=== PATIENT | female | born 1960 | race Caucasian/White ===

== ENCOUNTER 2017-04-11 12:30 | Observation (INO) | payer OTHER ==
[~2017-04-11] VITALS: Ht 162.6 cm; Wt 47.2 kg
--- NOTE | ~2017-04-11 | HP ---
Unit #: [id number] #: [id number] Patient: KEMAL MURRAY [id number] [facility] [place] [facility]. [place], [place] [address] [id number] MR#: [id number] NAME: KEMAL MURRAY ROOM: Age: 56 Sex: F Admission Date: 04/11/2017 : 1960 Attending Physician: Leona Shukla M.D. Primary Care Physician: Carmel Aldrich M.D. HISTORY AND PHYSICAL CHIEF COMPLAINT General weakness. HISTORY OF PRESENT ILLNESS The patient is a 56-year-old female with past medical history of endstage breast cancer with skeletal metastasis, anemia, hypertension and endometriosis who presented to the emergency department for evaluation of the above. The patient was originally diagnosed with breast cancer in August of 2010. She underwent lumpectomy and ultimately mastectomy, as well as chemotherapy. She then had a recurrence in the lymph nodes in September of 2011 and underwent axillary dissection, as well as radiation. The most recent recurrence was in October of 2015 involving the lymph nodes, chest wall, as well as skeletal metastasis. She underwent chemotherapy. She also went to [place] for some trial immunotherapies, as well as glutaminase inhibitor trial. Last week she was started on an oral chemotherapy. She is followed by Dr. Bouchra Paige at [facility]. The patient has decided that she wants to stop treatment and be comfort measures only. She was going to be a direct admit to [facility], but apparently there were no beds, so she presented to [facility] for admission. The patient has had increasing general weakness for the past week. She denies any falls. No syncopal episodes. She has had decreased appetite. No vomiting. She has had some loose stool. She has generalized body pain. The pain is worse in her back. PAST MEDICAL HISTORY 1. Admission to [facility] in August of 2010 for breast cancer (no records). 2. Breast cancer with skeletal metastasis status post lumpectomy, mastectomy, axillary dissection, radiation, chemotherapy and multiple trial medications. Followed by Dr. Paige. 3. Anemia. 4. Endometriosis status post ablation and ultimately hysterectomy. 5. Hypertension. PAST SURGICAL HISTORY 1. Appendectomy. 2. Port placement. 3. Lumpectomy. 4. Mastectomy. 5. Axillary dissection. Unit #: [id number] #: [id number] Patient: KEMAL MURRAY SOCIAL HISTORY The patient lives with her . There is no tobacco or alcohol use. CODE STATUS She is currently comfort measures only. FAMILY HISTORY Notable for her mother having diabetes, COPD, cerebrovascular accident. Her father had hypertension. ALLERGIES Tegaderm and nickel. HOME MEDICATIONS Phenergan, Zofran, fentanyl patches 200 mcg q.48 hours, oxycodone 10 mg 1-2 q.2 hours, OxyContin (unknown dose). Home medications will need to be reviewed and verified. REVIEW OF SYSTEMS A complete review of systems is negative except as indicated in the HPI. PHYSICAL EXAMINATION GENERAL: The patient is a very pleasant, chronically ill appearing female who is awake and alert. She is somewhat restless. HEENT: The head is atraumatic. Mucous membranes are dry. NECK: Neck demonstrates focal areas of erythema and induration consistent with prior radiation. CARDIOVASCULAR: Regular rate and rhythm. RESPIRATORY: Lungs are relatively clear to auscultation bilaterally with no increased work of breathing. ABDOMEN: Soft, nontender with bowel sounds present in all 4 quadrants. EXTREMITIES: There is no pedal edema. NEUROLOGIC: The patient is awake and alert. She is moving all extremities. She follows commands. PSYCHIATRIC: The patient has a somewhat flat affect but is cooperative. SKIN: Skin demonstrates radiation changes and induration involving the neck and chest wall. DIAGNOSTIC TESTS None. ASSESSMENT 1. The patient is a 56-year-old female with general weakness. 2. Breast cancer with skeletal metastasis. The patient is requesting Hospice and is comfort measures only. 3. Anemia. 4. Hypertension. 5. History of endometriosis. PLAN 1. Admit to med/surg. 2. Normal saline at 75 mL an hour. 3. Bedrest. 4. Fall precautions. 5. Consult Hospice regarding endstage breast cancer. 6. Ativan p.r.n. 7. Zofran p.r.n. Unit #: [id number] #: [id number] Patient: KEMAL MURRAY 8. Phenergan p.r.n. 9. Dilaudid p.r.n. 10. Comfort measures only. NOTE: I had a lengthy conversation with the patient, her , her daughter, [id number] and other family members. All of their questions were answered. Dictated by Tracee Driscoll TD: 04/11/2017 14:15 JOB #: [id number] HISTORY AND PHYSICAL Page 1 of 1 X Uzma Ortiz MD X HISTORY AND PHYSICAL
--- NOTE | ~2017-04-11 | HP ---
Unit #: [id number] #: [id number] Patient: KEMAL MURRAY [id number] [address] [address] [id number] I MR#: [id number] NAME: KEMAL MURRAY ROOM: [id number] Age: 56 Sex: F Admission Date: 04/11/2017 : 1960 Attending Physician: Uzma Ortiz M.D. Primary Care Physician: Carmel Aldrich M.D. HISTORY AND PHYSICAL ADDENDUM ADDITIONAL PAST MEDICAL HISTORY 1. Pulmonary embolism, on chronic anticoagulation with Xarelto. 2. Hypothyroidism. Dictated by Tracee Driscoll/lisa TD: 04/11/2017 15:28 JOB #: [id number] HISTORY AND PHYSICAL Page 1 of 1 X Uzma Ortiz MD X HISTORY AND PHYSICAL
[2017-04-11] MEDS ORDERED: PATIENT'S PHARMACY (13:52)
[2017-04-11] MEDS ORDERED: SENNA8.6 M1 PO (13:53)
[2017-04-11] MEDS ORDERED: KCL PO (13:53)
[2017-04-11] MEDS ORDERED: LOPRESSOR PO (13:53)
[2017-04-11] MEDS ORDERED: ACETAMINOPHEN PO (13:54)
[2017-04-11] MEDS ORDERED: DURAGESIC1 EAC3 TOP (13:54)
[2017-04-11] MEDS ORDERED: LYRICA (13:54)
[2017-04-11] MEDS ORDERED: XARELTO20 MG PO (13:54)
[2017-04-11] MEDS ORDERED: PRILOSEC PO (13:54)
[2017-04-11] MEDS ORDERED: ZOFRAN8 MG PO (13:55)
[2017-04-11] MEDS ORDERED: OXYCODONE HCL5 M1 PO (13:55)
[2017-04-11] MEDS ORDERED: REMERON15 MG PO (13:56)
[2017-04-11] MEDS ORDERED: FERRO-TIME325 MG PO (13:56)
[2017-04-11] MEDS ORDERED: MAGNESIUM400 MG PO (13:56)
[2017-04-11] MEDS ORDERED: PHENERGAN PO (13:56)
[2017-04-11] MEDS ORDERED: LEXAPRO PO (13:56)
[2017-04-11] MEDS ORDERED: TRANSDERM-SCOP1 EACH TOP (13:57)
[2017-04-11] MEDS ORDERED: SYNTHROID PO (13:57)
== END 2017-04-11 17:10 | DRG 948 ==
LOC: CED 12:30 → CEDOF 15:26 → C2A 16:51
DX: R53.1 Weakness (principal); D64.9 Anemia, unspecified; I10 Essential (primary) hypertension; Z85.3 Personal history of malignant neoplasm of breast; Z87.42 Personal history of other diseases of the female genital tract; Z90.49 Acquired absence of other specified parts of digestive tract; Z88.8 Allergy status to other drugs, medicaments and biological substances; Z91.048 Other nonmedicinal substance allergy status
CPT/HCPCS: 96361; 96374; 96375; 99284; G0378; J2060; J2405

== ENCOUNTER 2017-04-11 17:11 | Inpatient (IN) | payer OTHER ==
--- NOTE | ~2017-04-11 | HP ---
Unit #: [id number] #: [id number] Patient: CLAUDINE DEE [id number] [facility] [address] [facility]. [place], [place] [address] [id number] MR#: [id number] NAME: CLAUDINE DEE ROOM: 219 Age: 56 Sex: F Admission Date: 04/11/2017 : 1960 Attending Physician: James Lira M.D. Primary Care Physician: Carmel Aldrich M.D. HISTORY AND PHYSICAL HOSPICE HISTORY AND PHYSICAL CHIEF COMPLAINT Pain and shortness of breath with movement secondary to cancer metastases, as well as some anxiety. HISTORY OF PRESENT ILLNESS Ms. Claudine eDe is a comfort care patient with a history of skeletal metastases from breast cancer, along with anemia, hypertension, endometriosis, pulmonary embolism, and hypothyroidism, who presented to the emergency room at [facility] and was admitted and then discharged to a hospice scatter bed in the afternoon on April 11. She is having issues with worsening pain and with increased generalized weakness. PAST MEDICAL HISTORY As noted above. PAST SURGICAL HISTORY/SOCIAL HISTORY/FAMILY HISTORY/ALLERGIES/HOME MEDICATIONS As noted and are unchanged from the dictated H&P from yesterday by Dr. Ortiz. These were reviewed with the patient. REVIEW OF SYSTEMS Patient denies any nausea or diarrhea. She does endorse some difficulty urinating which may have been due to dehydration. She was straight cathed yesterday for urine. No skin rashes, no abdominal pain, no numbness or tingling in her fingers or toes. Her worst pain is in her shoulder blades bilaterally and much worse with movement. PHYSICAL EXAMINATION MOST RECENT VITAL SIGNS FROM YESTERDAY: Temperature 99, pulse 85, respiratory rate 16, and blood pressure 104/71. GENERAL: Patient appears chronically ill but is in no acute distress. CARDIOVASCULAR: Regular rate and rhythm. No murmurs. LUNGS: Clear to auscultation bilaterally. No rales, rhonchi, or wheezes. ABDOMEN: Soft, nontender, and nondistended. No mass or hepatosplenomegaly. SKIN: No rashes or lesions. Skin is warm and dry throughout. DIAGNOSTIC STUDIES There is no laboratory or imaging at this time. ASSESSMENT AND PLAN Unit #: [id number] #: [id number] Patient: CLAUDINE DEE Metastatic breast cancer with uncontrolled pain and anxiety. Continue to treat shortness of breath as well. I have asked the patient to hydrate orally as her skin turgor currently looks good and her mucous membranes are reasonably moist at this time but would be willing to start IV fluids if patient has any issues with oral intake. Will adjust symptomatic medications in coordination with the hospice nurse and will hope for discharge to home under hospice care in one to two days once we have her symptoms controlled. Dictated by Tracee Feliz/jane TD: 04/12/2017 15:02 JOB #: [id number] HISTORY AND PHYSICAL Page 1 of 1 X James Lira MD X HISTORY AND PHYSICAL
--- NOTE | ~2017-04-11 | A ---
[facility] Nutrition Therapy DATE: 04/12/17 Patient: KEMAL MURRAY Physician: VITA Address: [address] [facility] Room/Bed: [address] [place] [address], Zip: [place] [address] Admit Date: 04/11/17 Date of : 56 Height: Weight: NUTRITIONAL ASSESSMENT: REASON: PT SEEN FOR 3 NUTRITION RISK PT RE: WEIGHT LOSS + POOR PO INTAKE ALSO LOW BMI 56 Y.O. FEMALE ADMITTED FOR WEAKNESS PMH: END STAGE BREAST CANCER W/SKELETAL METASTASIS S/P CHEMOTHERAPY, PE, HTN, HYPOTHYROIDISM Anthropometrics: 5'4", WT: 104# (47 KG), BMI: 17.8, 87%IBW Labs: NO LABS DRAWN Meds: COLACE, PHENERGAN, ZOFRAN I/O & Bowel function: NO AVAILABLE DATA Skin Integrity: NO KNOWN SKIN ISSUES Estimated Nutrition Needs: INCREASED NEEDS 2' PMH, CURRENT DX, DECREASED PO INTAKE AND APPETITE, WEIGHT LOSS NOTED Assessment: CHART REVIEWED AND EVENTS NOTED. PT SEEN FOR 3 NUTRITION RISK PT RE: WEIGHT LOSS + POOR PO INTAKE, ALSO PT UNDERWEIGHT. PER RN AND CHART, HOSPICE BEING CONSULTED AND PT REQUESTS COMFORT MEASURES ONLY PT AND FAMILY REPORT PT'S DECREASED PO INTAKE 2' DECREASED APPETITE D/T MEDICATIONS & SIDE EFFECTS OF CHEMOTHERAPY. WEIGHT LOSS REPORTED BUT UNABLE TO IDENTIFY AMOUNT AND TIME FRAME. THIS RD ENCOURAGED HIGH KCAL/HIGH PROTEIN SMALL FREQUENT MEALS + SUPPLEMENT INTAKE, PT AGREED TO ENSURE PUDDING BID, RD TO ORDER. PT AND FAMILY STATE PT LIKES FRUIT, COTTAGE CHEESE AND POTATOES. PT AND FAMILY REPORTED NO DIET QUESTIONS AT THIS TIME. RD TO REMAIN AVAILABLE. Dx: INAQUATE PROTEIN-ENERGY INTAKE R/T LOSS OF APPETITE, PMH AEB PT REPORT ABOVE, LOW BMI NOTED 17.8, 87% IBW, ?WEIGHT LOSS NOTED. Intervention: 1. REGULAR DIET 2. ENSURE PUDDING BID Monitoring, Evaluation and Goals: 1. ORAL INTAKE; CONSUME/TOLERATE >50% OF MEALS AND SUPPLEMENTS 2. WEIGHTS; PROMOTE GRADUAL WEIGHT GAIN TOWARDS HEALTHY BMI; PREVENT FURTHER WEIGHT LOSS [facility] Nutrition Therapy DATE: 04/12/17 Patient: KEMAL MURRAY Physician: VITA Address: [address] [facility] Room/Bed: [address] [place] [address], Zip: [place] [address] Admit Date: 04/11/17 Date of : 56 Height: Weight: MONITOR: -PO INTAKE/APPETITE -WEIGHTS -SUPPLEMENT INTAKE Recommendations: 1. PLEASE ORDER [place] ENSURE PUDDING BID W/MEALS, PT UNDERWEIGHT 2. APPRECIATE FAMILY AND STAFF TO ENCOURAGE ADEQUATE PO INTAKE, PT REQUIRED ADDITIONAL PROTEIN, KCAL AND FLUID INTAKE. ENCOURAGE PT TO ORDER FAVORITE FOODS RD WILL F/U PER PROTOCOL PT IS MODERATELY COMPROMISED Respectfully, TAE IYER MS, RD, LD [facility] Nutrition[facility] Services [facility] cc: client file
[~2017-04-11 17:11] MED LIST: ACETAMINOPHEN PO; DURAGESIC1 EAC3 TOP; FERRO-TIME325 MG PO; KCL PO; LEXAPRO PO; LOPRESSOR PO; LYRICA; MAGNESIUM400 MG PO; OXYCODONE HCL5 M1 PO; PATIENT'S PHARMACY; PHENERGAN PO; PRILOSEC PO; REMERON15 MG PO; SENNA8.6 M1 PO; SYNTHROID PO; TRANSDERM-SCOP1 EACH TOP; XARELTO20 MG PO; ZOFRAN8 MG PO
== END 2017-04-13 12:46 | DRG 948 ==
LOC: C2A 17:11
DX: G89.3 Neoplasm related pain (acute) (chronic) (principal); C79.51 Secondary malignant neoplasm of bone; C50.919 Malignant neoplasm of unspecified site of unspecified female breast; I10 Essential (primary) hypertension; E03.9 Hypothyroidism, unspecified; D64.9 Anemia, unspecified; F41.9 Anxiety disorder, unspecified; R06.02 Shortness of breath; Z51.5 Encounter for palliative care; R53.1 Weakness
CPT/HCPCS: 94760; J1170; J2060; J2405